=== PATIENT | female | born 1970 | race Caucasian/White ===

== ENCOUNTER 2016-12-30 12:38 | Emergency (ER) | payer BC ==
[2016-12-30 13:21] VITALS: BP 129/79
--- NOTE | 2016-12-30 13:29 | UC ---
Lower Extremity/Ankle HPI - HPI Summary HPI Summary: left ankle pain x 2 weeks + inversion injury of the left ankle was improving but started to get swollen since yesterday - History of Current Complaint Chief Complaint: UCLowerExtremity Stated Complaint: LEFT ANKLE PAIN Time Seen by Provider: 12/30/16 13:17 Hx Obtained From: Patient Hx Last Menstrual Period: 12/16/16 Onset/Duration: Sudden Onset, Lasting Weeks - 2, Still Present, Worse Since - yesterday Severity Initially: Mild Severity Currently: Moderate Aggravating Factor(s): Standing, Ambulation Alleviating Factor(s): Rest, Elevation, Ice Able to Bear Weight: Yes - Allergies/Home Medications Allergies/Adverse Reactions: Allergies Allergy/AdvReac Type Severity Reaction Status Date / Time No Known Allergies Allergy Verified 12/30/16 13:21 Home Medications: Home Medications Vitamin E 1 tab PO DAILY 12/30/16 [History Confirmed 12/30/16] PMH/Surg Hx/FS Hx/Imm Hx Endocrine History Of: Reports: Thyroid Disease - hypothyroidism Cardiovascular History Of: Denies: Hypertension Respiratory History Of: Denies: Pulmonary Embolism GI/ History Of: Denies: Ulcer Psychological History Of: Denies: Schizophrenia Cancer History Of: Denies: Lung Cancer, Breast Cancer - Surgical History Surgical History: Yes Surgery Procedure, Year, and Place: [id number]. tubal reversal- 2003. R tubal removal- 2003 - Family History Known Family History: Positive: Hypertension - Social History Alcohol Use: None Substance Use Type: None Smoking Status (MU): Never Smoked Tobacco - Immunization History Most Recent Influenza Vaccination: 2016 Review of Systems Constitutional: Negative Skin: Negative Eyes: Negative ENT: Negative Respiratory: Negative Cardiovascular: Negative Musculoskeletal: Other: - left ankle pain and swelling All Other Systems Reviewed And Are Negative: Yes Physical Exam Triage Information Reviewed: Yes Appearance: Well-Appearing, No Pain Distress, Well-Nourished Vital Signs: Initial Vital Signs Temp 98 F 12/30/16 13:13 Pulse 77 12/30/16 13:13 Resp 16 12/30/16 13:13 BP 129/79 12/30/16 13:13 Pulse Ox 98 12/30/16 13:13 Vital Signs Reviewed: Yes Eyes: Positive: Conjunctiva Clear ENT: Positive: Normal ENT inspection, Hearing grossly normal Neck exam: Normal Respiratory: Positive: Chest non-tender, Lungs clear, Normal breath sounds Cardiovascular: Positive: RRR, No Murmur, Pulses Normal Musculoskeletal: Positive: Other: - left ankle: + swelling lateral ankle , + tenderness lateral ankle good ROM on flexion and extension Lower Extremity Course/Dx - Differential Dx/Diagnosis Provider Diagnoses: sprain left ankle Discharge - Discharge Plan Condition: Stable Disposition: HOME Patient Education Materials: Ankle Sprain (ED) Referrals: Ammy Wilks MD [Primary Care Provider] - 7 Days
--- NOTE | 2016-12-30 14:05 | RAD ---
INDICATION: Left ankle injury. TECHNIQUE: 3 views of the left ankle were obtained. FINDINGS: Soft tissue swelling is noted along the anterolateral aspect of the ankle. No fracture is seen. Joint spaces appear maintained. IMPRESSION: SOFT TISSUE SWELLING, NO FRACTURE IS SEEN.
== END 2016-12-30 14:10 | disposition home or self-care (01) ==
LOC: UCCORT 12:38
DX: S93.402A Sprain of unspecified ligament of left ankle, initial encounter (principal); X50.0XXA Overexertion from strenuous movement or load, initial encounter; Y93.9 Activity, unspecified; Y99.9 Unspecified external cause status; E03.9 Hypothyroidism, unspecified
CPT/HCPCS: 99211; G0463

== ENCOUNTER 2017-03-25 11:49 | Emergency (ER) | payer BC ==
[2017-03-25 11:56] VITALS: BP 109/81
--- NOTE | 2017-03-25 12:12 | UC ---
Complaint Female HPI - HPI Summary HPI Summary: urinary frequency x 1 day no burning, no chills, no flank pain, no fever - History Of Current Complaint Chief Complaint: UCGU Stated Complaint: URINARY Time Seen by Provider: 03/25/17 12:01 Hx Obtained From: Patient Hx Last Menstrual Period: 03/25/17 Onset/Duration: Gradual Onset, Lasting Days - 1, Still Present Timing: Constant Severity Initially: Moderate Severity Currently: Moderate Character: Cramping Aggravating Factor(s): Urination Alleviating Factor(s): Nothing Associated Signs And Symptoms: Negative: Fever, Back Pain, Vaginal Bleeding/ Discharge, Vaginal Discharge, Nausea, Vomiting(# Of Episodes =), Genital Swelling, Genital Blisters, Retained Foregin Body (Specify) - Allergies/Home Medications Allergies/Adverse Reactions: Allergies Allergy/AdvReac Type Severity Reaction Status Date / Time No Known Allergies Allergy Verified 03/25/17 11:56 PMH/Surg Hx/FS Hx/Imm Hx Previously Healthy: Yes - Surgical History Surgical History: Yes Surgery Procedure, Year, and Place: [id number]. tubal reversal- 2003. R tubal removal- 2003. removal bone spurs 03/17 - Family History Known Family History: Positive: Hypertension Negative: Diabetes - Social History Alcohol Use: Occasionally Substance Use Type: None Smoking Status (MU): Never Smoked Tobacco - Immunization History Most Recent Influenza Vaccination: 2016 Review of Systems Constitutional: Negative Skin: Negative Eyes: Negative ENT: Negative Gastrointestinal: Negative Genitourinary: Frequency Motor: Negative All Other Systems Reviewed And Are Negative: Yes Physical Exam Triage Information Reviewed: Yes Appearance: Well-Appearing, No Pain Distress, Well-Nourished Vital Signs: Initial Vital Signs Temp 98.1 F 03/25/17 11:51 Pulse 78 03/25/17 11:51 Resp 14 03/25/17 11:51 BP 109/81 03/25/17 11:51 Pulse Ox 98 03/25/17 11:51 Vital Signs Reviewed: Yes Eyes: Positive: Conjunctiva Clear ENT: Positive: Normal ENT inspection, Hearing grossly normal, Pharynx normal Neck: Positive: Supple, Nontender, No Lymphadenopathy Respiratory: Positive: Chest non-tender, Lungs clear, Normal breath sounds Cardiovascular: Positive: RRR, No Murmur, Pulses Normal Abdominal Exam: Normal Abdomen Description: Positive: Nontender, Soft. Negative: CVA Tenderness (R), CVA Tenderness (L), Distended, Guarding Bowel Sounds: Positive: Present Complaint Female Dx - Differential Dx/Diagnosis Provider Diagnoses: uti Discharge - Discharge Plan Condition: Stable Disposition: HOME Prescriptions: Sulfamethox/Trimethoprim DS* [Bactrim DS 800/160 TAB*] 1 tab PO BID #14 tab Patient Education Materials: Urinary Tract Infection in Women (ED) Referrals: Ammy Wilks MD [Primary Care Provider] - If Needed
== END 2017-03-25 12:19 | disposition home or self-care (01) ==
LOC: UCCORT 11:49
DX: N39.0 Urinary tract infection, site not specified (principal)
CPT/HCPCS: 81003; 87077; 87086; 87186; 99212; G0463